=== PATIENT | male | born 1985 | race Caucasian/White ===

== ENCOUNTER 2019-08-25 17:31 | Emergency (ER) | payer OTHER, SELFPAY ==
[2019-08-25 17:36] VITALS: BP 156/110; PULSE 85; RESP 18; TEMP 37.2; O2SAT 100
--- NOTE | 2019-08-25 18:16 | ED.BACK ---
HPI - Back Pain/Injury General Chief Complaint: Back Pain/Injury Stated Complaint: BACK INJURY Time Seen by Provider: 08/25/19 17:35 Source: patient Mode of arrival: ambulatory Limitations: no limitations History of Present Illness HPI Narrative: Patient is a 34-year-old male who presents to emergency department for evaluation of right lower back pain patient notes that he was lifting an object when he felt a pop in the lower back and since had moderate aching pain to the right lower lumbar region worse with activity and movement patient denies paresthesias but notes some tingling in the leg patient notes that the pain is worse with activity and movement took ibuprofen just prior to arrival Related Data Home Medications Medication Instructions Recorded Confirmed atorvastatin 10 mg tablet 10 mg PO DAILY 07/09/19 Allergies Allergy/AdvReac Type Severity Reaction Status Date / Time Penicillins Allergy Unknown Urticaria Verified 08/25/19 17:42 Review of Systems Review of Systems: All systems reviewed & are unremarkable except as noted in HPI and below PMFSH Past Medical History Medical History Controlled diabetes mellitus type II without complication NORMA (obstructive sleep apnea) Surgical History Surgical History History of vasectomy Social History Social History Smoking status: Never smoker Second hand tobacco smoke exposure: No Alcohol intake: current Substance use: never Substance use type: does not use Gender identity (if verbalized by the patient): Male Exam Narrative: Exam Narrative: GENERAL: Well-appearing, well-nourished, and in no acute distress. HEAD: Normocephalic, atraumatic. EYES: PERRLA and EOMI. ENT: Nares clear, no rhinorrhea or epistaxis. Mucous membranes moist. CHEST: Clear to auscultation. No respiratory distress. No wheezes rales or rhonchi HEART: Regular rate and rhythm. No murmur heard. EXTREMITIES: Normal range of motion. No edema. Tenderness of the right lower back SKIN: Warm, dry, no rash. NEURO: No focal deficits. Alert and oriented x3. Motor and sensory intact and symmetrical in the extremities. Normal speech and gait. Cranial nerves II through XII grossly intact PSYCH: Normal mood and affect. Course Course Emergency Course: Patient aware of case findings treatment plan and diagnosis agreeing to follow-up as directed or to return if symptoms worsen or concerns Vital Signs Vital signs: Vital Signs Temperature 98.9 F 08/25/19 17:36 Pulse Rate 85 08/25/19 17:36 Respiratory Rate 18 08/25/19 17:36 Blood Pressure 156/110 H 08/25/19 17:36 Pulse Oximetry 100 08/25/19 17:36 Temperature 98.9 F 08/25/19 17:36 Pulse Rate 85 08/25/19 17:36 Respiratory Rate 18 08/25/19 17:36 Blood Pressure 156/110 H 08/25/19 17:36 Pulse Oximetry 100 08/25/19 17:36 MDM - Back Pain/Injury MDM Narrative Medical decision making narrative: Patients pain is positional in nature and localized to back without signs of cord compression or cauda equina based on neurological exam, skeletal exam and history. No fever or other significant factors to suggest osteomyelitis or spinal epidural abscess. No symptoms or signs to suggest pain is referred from abdominal or / cardiopulmonary sources. No pulsatile masses noted on exam. Patient ambulates with steady gait and is stable for outpatient management given case findings. Discharge Plan Discharge Clinical Impression: Acute low back pain Patient Disposition: Home, Self-Care Condition: Stable Instructions: Antibiotic Form, Acute Low Back Pain (ED) Additional Instructions: Medications as needed and prescribed. Limit lifting and bending. You may apply heat or cold to the area as needed. Follow up with your doctor for further care in
[2019-08-25] MEDS: DIAZEPAM 5 MG TABLET PO (18:39)
[2019-08-25 18:49] VITALS: BP 158/99; PULSE 78; RESP 16; O2SAT 100
== END 2019-08-25 18:50 | disposition home or self-care (01) ==
PROVIDERS: Emergency Provider Emergency Medicine; PCP Family Medicine
DX: M54.5 Low back pain (principal); E11.9 Type 2 diabetes mellitus without complications; G47.33 Obstructive sleep apnea (adult) (pediatric)
CPT/HCPCS: 99283; A9270

== ENCOUNTER → 2021-05-06 10:06 | Outpatient (CLI) | payer OTHER, SELFPAY ==
[2021-05-06 13:52] LABS: Influenza Control Positive
[2021-05-06 19:33] LABS: SARS-CoV-2 RNA PCR Negative
== END ==
PROVIDERS: PCP Family Medicine; Visit Provider Family Medicine
DX: R05.9 Cough, unspecified (principal); R50.9 Fever, unspecified; Z20.822 Contact with and (suspected) exposure to COVID-19
CPT/HCPCS: 87804; C9803; U0003; U0005

== ENCOUNTER → 2021-05-31 07:25 | Outpatient (CLI) | payer OTHER, SELFPAY ==
[2021-06-01 13:55] LABS: SARS-CoV-2 RNA PCR Positive
== END ==
PROVIDERS: PCP Family Medicine; Visit Provider Nurse Practitioner Family
DX: U07.1 COVID-19 (principal)
CPT/HCPCS: C9803; U0003; U0005

== ENCOUNTER 2022-09-24 15:58 | Emergency (ER) | payer OTHER, SELFPAY ==
--- NOTE | ~2022-09-24 | XR_ITS ---
EXAMINATION: XR foot LT min 3V DATE: 09/24/2022 16:27 INDICATION: Pain and swelling at the base of the fifth metatarsal post injury. TECHNIQUE: Dorsoplantar, two oblique and lateral views of the left foot were obtained. COMPARISON: None. FINDINGS: Alignment is normal. No fracture. Mild osteoarthritis at the first metatarsophalangeal and multiple t arsometatarsal and interphalangeal joints. Small plantar calcaneal spur. Soft tissues are unremarkabl e. IMPRESSION: 1. Mild degenerative skeletal changes in the left foot. No acute osseous abnormality. Reviewed, dictated and finalized at location A. IMPRESSION: 1. Mild degenerative skeletal changes in the left foot. No acute osseous abnorm ality.
[2022-09-24 16:13] VITALS: BP 148/90; PULSE 74; RESP 18; TEMP 37; O2SAT 99
--- NOTE | 2022-09-24 16:23 | ED.GENADULT ---
HPI - General Adult General Chief complaint: Extremity Injury, Lower Stated complaint: lt foot injury Time Seen by Provider: 09/24/22 16:23 Source: patient Mode of arrival: ambulatory Limitations: no limitations History of Present Illness HPI narrative: 29-year-old male patient presents to the [facility] with complaints of left foot pain. Patient states that he was stepping outside of his door to take out the garbage wall flip-flops and stepped down and rolled his left ankle. Patient states he did take 4 ibuprofen prior to arrival and states that the swelling was getting significantly worse they decided come in and get it checked out. Related Data Allergies Allergy/AdvReac Type Severity Reaction Status Date / Time Penicillins Allergy Unknown Urticaria Verified 09/24/22 16:24 Review of Systems Review of Systems: CONSTITUTIONAL: Denies fever, chills, or sweats. EYES: Denies visual changes, redness, or discharge. ENT: Denies rhinorrhea, congestion, sore throat, or otalgia. CARDIOVASCULAR: Denies chest pain, palpitations, or edema. RESPIRATORY: Denies cough or dyspnea. GASTROINTESTINAL: Denies abdominal pain, nausea, vomiting, or diarrhea. GENITOURINARY: Denies dysuria or hematuria. SKIN: Denies rash or itching. MUSCULOSKELETAL: Denies back pain, joint pain, or myalgia. Positive left foot pain NEUROLOGIC: Denies headache, numbness, or weakness. PSYCHIATRIC: Denies anxiety or depression. [facility] Past Medical History Medical History (Updated 09/24/22 @ 16:44 by MICAELA Vu) Controlled diabetes mellitus type II without complication NORMA (obstructive sleep apnea) Surgical History Surgical History History of vasectomy Family History Family History Grandparent Diabetes mellitus Hypertension Family history of gastrointestinal disorder Acute myocardial infarction Family history of renal failure, Onset Age: 75 Family history of malignant neoplasm of kidney Father Acute myocardial infarction Family history of cardiomyopathy Social History Social History Smoking status: Never smoker Second hand tobacco smoke exposure: No Alcohol intake: current Alcohol use details: rare Substance use: never Substance use type: does not use Living arrangements: with family Occupation/Education: occupation Gender identity (if verbalized by the patient): Male Sexual Orientation (if Verbalized by the Patient): Straight or Heterosexual Comments at the time of my signature I agree with nursing past medical history, surgical, social, and family history. There is no relevant family history pertinent to the presenting complaint. Exam Narrative: GENERAL: Well-appearing, well-nourished, and in no acute distress. HEAD: Normocephalic, atraumatic. EYES: PERRLA and EOMI. ENT: Nares clear, no rhinorrhea or epistaxis. Mucous membranes moist. NECK: Supple. No lymphadenopathy CHEST: Clear to auscultation. No respiratory distress. HEART: Regular rate and rhythm. No murmur heard. Normal peripheral pulses. ABDOMEN: Soft, nontender, nondistended, normal active bowel sounds. EXTREMITIES: Patient unable to bear weight and ambulate without pain on left foot. no erythema, lesions, ulcers or break in skin integrity. there is swelling noted to the lateral side of the ankle and the lateral side of the top of the foot. The L foot is without obvious asymmetry or deformity when compared to the R foot. No bony step-off, nontender to palpation over the toes, Tender over the lateral midfoot with point tenderness over the proximal 5th metatarsal , no hindfoot or sole pain on palpation. pain with plantar/dorsiflexion, inversion/eversion. Distal motor and neurovascular status are intact SKIN: Warm, dry, no rash. NEURO: No focal deficits. Alert and oriented x3.
== END 2022-09-24 16:49 | disposition home or self-care (01) ==
PROVIDERS: Emergency Provider Nurse Practitioner Family; PCP Family Medicine
DX: S93.602A Unspecified sprain of left foot, initial encounter (principal); X50.9XXA Other and unspecified overexertion or strenuous movements or postures, initial encounter; E11.9 Type 2 diabetes mellitus without complications; Z98.52 Vasectomy status
CPT/HCPCS: 73630; 99213; G0463

== ENCOUNTER 2023-07-08 11:33 | Emergency (ER) | payer OTHER, SELFPAY ==
--- NOTE | ~2023-07-08 | XR_ITS ---
Right Knee Technique: AP, lateral, and sunrise views were obtained. Clinical History: Pain Findings: No fracture or dislocation is seen. Osseous alignment is anatomic. Joint spaces are preserv ed without degenerative or erosive change. Soft tissues are unremarkable. No joint effusion is seen. Impression: Unremarkable right knee radiographs. Reviewed, dictated and finalized at location . EXTRACTOR Impression: Unremarkable right knee radiographs.
--- NOTE | ~2023-07-08 | XR_ITS ---
Left Knee Technique: AP, lateral, and sunrise views were obtained. Clinical History: Pain Findings: No fracture or dislocation is seen. Osseous alignment is anatomic. Joint spaces are preserv ed without degenerative or erosive change. Soft tissues are unremarkable. No joint effusion is seen. Impression: Unremarkable left knee radiographs. Reviewed, dictated and finalized at location . 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
[2023-07-08 11:35] VITALS: BP 139/87; PULSE 88; RESP 16; TEMP 36.5; O2SAT 98
--- NOTE | 2023-07-08 14:07 | PC.NURSE ---
PT CALLED FOR VITAL RECHECK. NO ANSWER
[2023-07-08 14:54] VITALS: BP 150/104; PULSE 81; RESP 16; O2SAT 98
--- NOTE | 2023-07-08 15:08 | ED.LOWEXIN ---
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 HE DENIES OTHER INJURIES. Related Data Allergies Allergy/AdvReac Type Severity Reaction Status Date / Time Penicillins Allergy Unknown Urticaria Verified 07/08/23 11:38 Review of Systems Review of Systems: All systems reviewed & are unremarkable except as noted in HPI and below PMFSH Past Medical History Medical History Controlled diabetes mellitus type II without complication NORMA (obstructive sleep apnea) Surgical History Surgical History History of vasectomy Family History Family History Grandparent Diabetes mellitus Hypertension Family history of gastrointestinal disorder Acute myocardial infarction Family history of renal failure, Onset Age: 75 Family history of malignant neoplasm of kidney Father Acute myocardial infarction Family history of cardiomyopathy Social History Social History Smoking status: Never smoker Second hand tobacco smoke exposure: No Alcohol intake: current Alcohol use details: rare Substance use: never Substance use type: does not use Living arrangements: with family Occupation/Education: occupation Gender identity (if verbalized by the patient): Male Sexual Orientation (if Verbalized by the Patient): Straight or Heterosexual Exam Narrative: GENERAL APPEARANCE: WELL-DEVELOPED, WELL-NOURISHED SKIN: NORMAL COLOR HEAD: NORMOCEPHALIC, NONTRAUMATIC EYES: CLEAR CONJUNCTIVA ENT: OROPHARYNX NORMAL, EARS NORMAL, NOSE NORMAL NECK: SUPPLE, NONTENDER CHEST AND RESPIRATORY: AIRWAY PATENT, NO RESPIRATORY DISTRESS, NO ACCESSORY MUSCLE USE HEART: REGULAR RATE/RHYTHM ABDOMEN: SOFT, NONTENDER, NO ORGANOMEGALY, QUIET BOWEL SOUNDS VASCULAR: NORMAL PERIPHERAL PULSES, NORMAL CAPILLARY REFILL. 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, NO GROSS MOTOR DEFICIT Course Vital Signs Vital signs: Vital Signs Temperature 36.5 C 07/08/23 11:35 Pulse Rate 88 07/08/23 11:35 Respiratory Rate 16 07/08/23 11:35 Blood Pressure 139/87 07/08/23 11:35 Pulse Oximetry 98 07/08/23 11:35 Oxygen Delivery Room Air 07/08/23 11:35 Temperature 36.5 C 07/08/23 11:35 Pulse Rate 60 07/08/23 17:58 Respiratory Rate 18 07/08/23 17:58 Blood Pressure 138/99 H 07/08/23 17:58 Pulse Oximetry 99 07/08/23 17:58 Oxygen Delivery Room Air 07/08/23 11:35 MDM - Extremity Injury (Lower) MDM Narrative Medical decision making narrative: RIGHT KNEE ABRASION AFTER A FALL, X-RAY SHOWED NO ACUTE ABNORMALITIES, THE ED PATIENT RECEIVED IBUPROFEN AND NORCO, PATIENT DECLINED TO BE OFF WORK TOMORROW. Imaging Data Radiologist's impression: Impressions Knee X-Ray 07/08/23 15:29 Impression: Unremarkable left knee radiographs. Knee X-Ray 07/08/23 15:30 Impression: Unremarkable right knee radiographs. Critical Care Time Critical Care Time Critical Care Time: No Discharge Plan Discharge Clinical Impression: Tarun
[2023-07-08] MEDS: IBUPROFEN 600 MG TABLET PO (15:56)
[2023-07-08 17:58] VITALS: BP 138/99; PULSE 60; RESP 18; O2SAT 99
== END 2023-07-08 18:30 | disposition home or self-care (01) ==
PROVIDERS: Emergency Provider Emergency Medicine; PCP Family Medicine
DX: S80.211A Abrasion, right knee, initial encounter (principal); E11.9 Type 2 diabetes mellitus without complications; W19.XXXA Unspecified fall, initial encounter
CPT/HCPCS: 73562; 99284; A9270